=== PATIENT | male | born 1960 | race Caucasian/White ===

== ENCOUNTER 2020-06-08 08:28 | Outpatient (CLI) | payer OTHER, SELFPAY ==
--- NOTE | 2020-06-08 08:30 | ECG_ITS ---
Measurements Intervals [place] Rate: 58 P: 62 NC: 172 QRS: 53 QRSD: 92 T: 55 QT: 393 QTc: 387 Interpretive Statements SINUS BRADYCARDIA DELAYED PRECORDIAL R/S TRANSITION BASELINE ARTIFACT- I, III, AVF, V3 BORDERLINE ECG Electronically Signed On 06-08-2020 8:52:26 CDT by Lucio Alvarez D.O.
== END 2020-06-08 08:29 | disposition home or self-care (01) ==
PROVIDERS: PCP Internal Medicine; Visit Provider Surgery
DX: E78.00 Pure hypercholesterolemia, unspecified (principal); K43.2 Incisional hernia without obstruction or gangrene; Z01.812 Encounter for preprocedural laboratory examination
CPT/HCPCS: 36415; 86850; 86900; 86901; 93005

== ENCOUNTER 2020-06-15 00:26 | Outpatient (CLI) | payer OTHER, SELFPAY ==
[2020-06-15 19:34] LABS: SARS-CoV-2 RNA PCR Negative
== END 2020-06-15 00:27 | disposition home or self-care (01) ==
LOC: ANHCOVIDDT 00:26
PROVIDERS: PCP Internal Medicine; Visit Provider Surgery
DX: Z01.812 Encounter for preprocedural laboratory examination (principal); Z20.828 Contact with and (suspected) exposure to other viral communicable diseases
CPT/HCPCS: 87635; C9803; U0003

== ENCOUNTER 2020-06-17 02:10 | Day surgery (SDC) | payer OTHER, SELFPAY ==
[2020-06-02 09:43] VITALS: BMI 36.6
[2020-06-17] VITALS (14 sets, daily range): BP systolic 124–151; BP diastolic 78–114; PULSE 52–65; RESP 10–20; TEMP 36.1; O2SAT 90–100
[2020-06-17] MEDS: LACTATED RINGERS 1,000 ML 30 ML IV CONT ×2 (06:50→10:52)
[2020-06-17] MEDS: KETOROLAC 15 MG/ML VIAL (*BKC) IV PUSH (06:54)
[2020-06-17] MEDS: ACETAMINOPHEN 500 MG TABLET 1000 MG PO (06:54)
--- NOTE | 2020-06-17 07:16 | WPDHPUPDATE1 ---
History and Physical Update Update Date/Time: 06/17/20 07:16 History and Physical has been reviewed, including an updated exam of the patient. There are NO changes in the patient's condition. Risks, benefits, and alternatives have been discussed and questions answered. Patient agrees to proceed with procedure.
--- NOTE | 2020-06-17 07:58 | PM.IMHP ---
H&P: HPI History of Present Illness Date/Time: 07/02/20 12:58 Chief complaint: recurrent incisional hernia Narrative: Hector Morales is a 60 year old male who presents with a recurrent hernia. 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 He develops quite a bit of bruising around the area, but this has resolved. In 07/2017, he underwent ventral hernia repair with mesh by Dr. Mendez, and he reports this hernia being at the same site. Review of Systems Review of Systems: All systems reviewed & are unremarkable except as noted in HPI and below Constitutional: Constitutional: Denies chills, Denies fever(s), Denies headache(s) and Denies weight loss Eyes: Eyes: Denies change in vision ENT: Denies dizziness, Denies headache(s), Denies neck mass and Denies throat swelling Cardiovascular: Cardiovascular: Denies chest pain, Denies lightheadedness and Denies dyspnea Respiratory: Respiratory: Denies cough, Denies dyspnea and Denies wheezing Gastrointestinal: Gastrointestinal: Denies abdominal pain, Denies change in bowel habits, Denies nausea and Denies vomiting Genitourinary: Genitourinary: Denies hematuria and Denies dysuria Musculoskeletal: Musculoskeletal: Reports as per HPI Integumentary/Breasts: Skin/Breast: Reports as per HPI Neurologic: Denies dizziness and Denies headache(s) Allergic/Immunologic: Allergic/Immunologic: Denies throat swelling and Denies wheezing PMF Past Medical History Medical History Adult hypothyroidism Benign essential hypertension Chronic GERD Surgical History Surgical History H/O hernia repair History of thyroid surgery Reattached lower extremity complication no complication just a surgery to reattach his leg Family History Family History Sibling Family history of type 2 diabetes mellitus Diabetes mellitus Mother Family history of malignant neoplasm of breast in first degree relative Social History Social History Smoking packs per day: 1.5 Smoking cigarettes per day: 30.0 Years smoked: 10 Smoking pack-years: 15.00 Smoking status: Former smoker Tobacco type: cigarettes Smoking end date: 10/23/09 Additional smoking assessment comments: QUIT 15 YEARS AGO Alcohol intake: never Substance use: never 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 Gender identity (if verbalized by the patient): Male Spiritual care concerns: No Meds Home Medications and Allergies Home Medications Medication Instructions Recorded Confirmed Type fenofibrate micronized 134 mg 134 mg PO DAILY #90 cap 05/11/20 06/17/20 Rx capsule levothyroxine 112 mcg tablet 112 mcg PO DAILY tablet 05/12/20 06/17/20 History Margaret-C with Bioflavonoids 1 tablet PO DAILY 06/02/20 06/17/20 History cholecalciferol (vitamin D3) 50 mcg PO DAILY 06/02/20 06/17/20 History [Vitamin D3] elderberry fruit and flower 1 cap PO DAILY 06/02/20 06/17/20 History esomeprazole magnesium 40 mg PO DAILY 06/02/20 06/17/20 History multivitamin 1 tablet PO DAILY 06/02/20 06/17/20 History omega 6-ybl-txn-fish oil [Fish Oil] 1 cap PO DAILY 06/02/20 06/17/20 History vitamin A 25,000 unit PO DAILY 06/02/20 06/17/20 History zinc 50 mg PO DAILY 06/02/20 06/17/20 History hydrocodone-acetaminophen [[place]] 1 tablet PO Q4H PRN #20 tablet 06/17/20 Rx ibuprofen 800 mg PO Q8H PRN #30 tablet 06/17/20 Rx pravastatin 40 mg tablet 40 mg PO DAILY #90 tablet 06/22/20 Rx Allergies Allergy/AdvReac Type Severity Reaction Status Date / Time No Known Allergies Allergy Verified 06/02/20 09:44 Exam Const: General: no acute distress and alert Orientation/consciousness: patient oriented x3 HENMT: Head: normocephalic and atraumatic Ears: hea
--- NOTE | 2020-06-17 08:05 | P.PNAN_ITS ---
Anes - Initial Pre Proc Eval Procedure: Operation Date: 06/17/20 08:00 Proposed Procedures p Laparoscopic Recurrent Ventral Hernia Repair with Mesh, Davinci Assisted - Trever Tillman DO Date/Time: 06/17/20 08:05 Surgeon: Trever Tillman DO Pre Op Diagnosis: recurrent ventral hernia Patient Data Age: 60 Gender: M Height: 5 ft 11 in Weight: 115.6 kg Last Vital Signs Temp 97.0 F L 06/17/20 06:55 Pulse 64 06/17/20 07:06 BP 146/79 H 06/17/20 07:06 Pulse Ox 98 06/17/20 06:55 Allergies Allergy/AdvReac Type Severity Reaction Status Date / Time No Known Allergies Allergy Verified 06/02/20 09:44 Home Medications Medication Instructions Recorded Confirmed Type pravastatin 40 mg tablet 40 mg PO DAILY 09/24/19 06/17/20 History fenofibrate micronized 134 mg 134 mg PO DAILY #90 cap 05/11/20 06/17/20 Rx capsule levothyroxine 112 mcg tablet 112 mcg PO DAILY tablet 05/12/20 06/17/20 History ascorbate calcium-bioflavonoid 1 tablet PO DAILY 06/02/20 06/17/20 History [Margaret-C with Bioflavonoids] cholecalciferol (vitamin D3) 50 mcg PO DAILY 06/02/20 06/17/20 History [Vitamin D3] elderberry fruit and flower 1 cap PO DAILY 06/02/20 06/17/20 History esomeprazole magnesium 40 mg PO DAILY 06/02/20 06/17/20 History multivitamin 1 tablet PO DAILY 06/02/20 06/17/20 History omega 5-ysm-zuu-fish oil [Fish Oil] 1 cap PO DAILY 06/02/20 06/17/20 History vitamin A 25,000 unit PO DAILY 06/02/20 06/17/20 History zinc 50 mg PO DAILY 06/02/20 06/17/20 History Patient hx anesthesia problems: none Family hx anesthesia problems: none PMFSH Social History Social History Smoking packs per day: 1.5 Smoking cigarettes per day: 30.0 Years smoked: 10 Smoking pack-years: 15.00 Smoking status: Former smoker Tobacco type: cigarettes Smoking end date: 10/23/09 Additional smoking assessment comments: QUIT 15 YEARS AGO Alcohol intake: never Substance use: never 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 Questions were solicited and answers provided to the satisfaction of the patient/family/POA.
[2020-06-17] MEDS: ceFAZolin 2 GM/D5W 50 ML 2 GM/50 ML BAG IVPB (08:56)
--- NOTE | 2020-06-17 10:37 | PM.PROC ---
Procedure Note - Detailed Date of procedure: 06/17/20 Pre-op diagnosis: recurrent incisional hernia Post-op diagnosis: other (Incarcerated recurrent incisional hernia) Procedure performed: 1. Laparoscopic incarcerated recurrent incisional hernia repair with Symbotex mesh, da Karsten assisted 2. Laparoscopic removal of old mesh foreign body Description of procedure: Procedure as well as risks, benefits, and alternatives were discussed with the patient. Written consent was obtained and placed in chart prior to procedure. Patient was brought back to surgical suite. He was placed supine on operating table. Time-out was done to confirm patient and procedure. He was then intubated by the anesthesia department. A bump was placed under his left hip, and the bed was flexed slightly to extend the space between his costal margin and iliac crest. His abdomen was prepped and draped in sterile fashion using chlorhexidine prep. A 5 millimeter incision was made in the left upper quadrant, and a 5 millimeter Optiview trocar was advanced through the abdominal layers under direct visualization. Once inside the abdominal cavity, carbon dioxide insufflation was used to create a pneumoperitoneum. His abdomen was inspected. An 8 millimeter incision was made in the left lower quadrant, and an 8 millimeter robotic trocar was placed under direct visualization. Another 8 millimeter incision was made in the left lateral abdomen, and an 8 millimeter robotic trocar was placed under direct visualization. Exparel was infiltrated along the lateral abdominal mike to perform a transversus abdominis plane block bilaterally. The 5 millimeter port was removed, the incision was extended to 12 millimeters, and a 12 millimeter air seal port was placed under direct visualization. A Reagan-Christie cone was also used to place an 0-Vicryl simple interrupted suture at this trocar site. The robotic arms were brought up to the patient's bedside and secured to the ports. The camera and instruments were inserted, and I then moved over to the robotic console and took control of the camera and instruments. After careful thorough inspection of the abdominal cavity, I began my dissection at the hernia. there was incarcerated omentum that was reduced from within the hernia defect. The old mesh was in the central portion of the hernia defect but was not secured to the fascia on all but 1 side. This mesh was carefully excised using hook electrocautery. The hernia sac was also excised with hook electrocautery. I then measured the hernia size. The hernia measured 3 cm vertically by 2 cm transversely. The fascia was closed using an 0-Stratafix running suture in a vertical fashion. A Symbotex 15cm x 10cm mesh was then placed within the abdominal cavity. This was oriented vertically with the mesh centered on the hernia defect. The mesh was then secured around the perimeter using 2 0 V lock running absorbable suture. The suture was also continued in a running fashion along the midline. The repair was inspected, and one final inspection was made around the abdominal cavity. The robotic instruments were then removed, and the robotic arms were disengaged from the trocars. The ports were then removed under direct visualization, the camera was removed, and the pneumoperitoneum was released. The 0 Vicryl transfascial suture was tied down. The skin of the incisions was then approximated using 4-0 Monocryl subcuticular suture. Exofin glue was then applied on top. The patient was then awakened from anesthesia, extubated, and transferred to recovery. Implants: Symbotex 15cm x 10cm Anesthesia: GETA and local ( Exparel) Surgeon: Trever Tillman DO Estimated blood loss (mL): 5 Drains: No Pathology: yes ( hernia sac and old mesh foreign body) Complications: No immediate complications Condition: stable Disposition: same day Findings: Mr. Morales presents with a recurrent hernia. In December, he reports feeling
[2020-06-17] MEDS: ONDANSETRON INJ 4 MG/2 ML VIAL IV PUSH ×2 (11:04→12:40)
== END 2020-06-17 14:15 | disposition home or self-care (01) ==
PROVIDERS: PCP Internal Medicine; Visit Provider Surgery
PROC: (CPT 49657; principal; 2020-06-17 08:00)
DX: K43.0 Incisional hernia with obstruction, without gangrene (principal); E78.00 Pure hypercholesterolemia, unspecified
CPT/HCPCS: 49657; 88300; A9270; C1781; C9290; J0330; J0690; J1100; J1170; J1885; J2250; J2405; J2704; J2710; J3010; J7030; J7120

== ENCOUNTER → 2021-02-17 11:21 | Outpatient (CLI) | payer OTHER, SELFPAY ==
--- NOTE | ~2021-02-17 | US_ITS ---
US soft tissue head and neck 02/17/2021 11:55 Indication: Localized swelling. Procedure: High-resolution ultrasound of the neck in the area of palpable concern. Comparison: No prior studies for comparison. Findings: Left thyroid lobe is surgically absent. No abnormal masses are identified. There is hypertr ophy of the right thyroid lobe measuring 5.8 x 2.6 x 1.5 cm with heterogeneous appearance Isthmus cami sures 3 mm. No discrete right thyroid mass is identified. Impression: 1: No discrete mass identified in the area of palpable concern. Status post left thyroidectomy. 2: Enlarged right thyroid lobe without discrete mass. Reviewed, dictated and finalized at location B. Impression: 1: No discrete mass identified in the area of palpable concern. Status post lef t thyroidectomy. 2: Enlarged right thyroid lobe without discrete mass.
== END ==
PROVIDERS: PCP Internal Medicine; Visit Provider Nurse Practitioner
DX: R22.1 Localized swelling, mass and lump, neck (principal)
CPT/HCPCS: 76536